=== PATIENT | male | born 1970 | race Caucasian/White ===

== ENCOUNTER 2016-07-05 14:30 | Day surgery (SDC) | payer OTHER ==
[~2016-07-05] VITALS: Ht 190.5 cm; Wt 136.3 kg
[~2016-07-05 14:30] MED LIST: CHANTIX1 MG PO; CRESTOR10 MG PO; DIOVAN HCT 11 TABLET PO; MAGNESIUM400 M1 PO; MOTRIN600 MG PO; OMEPRAZOLE40 M1 PO; PERCOCET 10/1 TABLET PO; ROBAXIN750 MG PO; ZOLOFT50 MG PO
== END 2016-07-05 15:58 | disposition home or self-care (01) ==
LOC: PAIN 14:30 → SDC 15:15 → PAIN 15:58
PROC: 3E0S33Z Introduction of Anti-inflammatory into Epidural Space, Percutaneous Approach (ICD-10-PCS; principal; 2016-07-05)
DX: M54.16 Radiculopathy, lumbar region (principal); M51.36 Other intervertebral disc degeneration, lumbar region; M48.06 Spinal stenosis, lumbar region; I10 Essential (primary) hypertension; F41.1 Generalized anxiety disorder; G47.33 Obstructive sleep apnea (adult) (pediatric)
CPT/HCPCS: J1030; J2250; J3010

== ENCOUNTER 2016-08-04 13:22 | Day surgery (SDC) | payer OTHER ==
[~2016-08-04] VITALS: Ht 190.5 cm; Wt 136.3 kg
== END 2016-08-04 19:08 | disposition home or self-care (01) ==
LOC: CATH 13:22
DX: R94.39 Abnormal result of other cardiovascular function study (principal); I25.9 Chronic ischemic heart disease, unspecified; I10 Essential (primary) hypertension; E78.5 Hyperlipidemia, unspecified; G47.30 Sleep apnea, unspecified; K21.9 Gastro-esophageal reflux disease without esophagitis; M54.40 Lumbago with sciatica, unspecified side; E66.01 Morbid (severe) obesity due to excess calories; Z68.41 Body mass index [BMI] 40.0-44.9, adult
CPT/HCPCS: C1769; C1887; J1644; J2250; J3010; J7050